=== PATIENT | female | born 1970 | race Caucasian/White ===

== ENCOUNTER → 2016-08-19 | Outpatient (CLI) | payer BC ==
--- NOTE | 2016-08-19 10:29 | DX ---
Left Knee, 5 Views Clinical Indications: Pain following trauma. Findings: A fracture is not identified. The bone alignment is normal. The soft tissues are unremarka ble. Incidentally, there is a benign-appearing sclerotic area in the proximal left tibia which is probably a bone island. Impression: Negative for fracture.
== END ==
LOC: BMCIMAGING 09:00
PROVIDERS: ATTEND Family Medicine
DX: M25.562 Pain in left knee (principal); X50.0XXA Overexertion from strenuous movement or load, initial encounter